=== PATIENT | female | born 2000 | race Two or more races ===

== ENCOUNTER 2021-04-04 12:23 | Outpatient (CLI) | payer OTHER | END 2021-04-04 12:34 | disposition home or self-care (01) | LOC: RAD 12:23 | PROVIDERS: ATTEND Orthopaedic Surgery | DX: M25.472 Effusion, left ankle (principal); S93.412A Sprain of calcaneofibular ligament of left ankle, initial encounter ==

== ENCOUNTER 2021-05-03 12:27 | Outpatient (CLI) | payer OTHER | END 2021-05-03 12:36 | disposition home or self-care (01) | LOC: RAD 12:27 | PROVIDERS: ATTEND Orthopaedic Surgery | DX: S82.392A Other fracture of lower end of left tibia, initial encounter for closed fracture (principal) ==

== ENCOUNTER 2021-05-19 10:52 | Outpatient (CLI) | payer OTHER | END 2021-05-19 11:01 | disposition home or self-care (01) | LOC: RAD 10:52 | PROVIDERS: ATTEND Orthopaedic Surgery | DX: M25.572 Pain in left ankle and joints of left foot (principal); S82.392A Other fracture of lower end of left tibia, initial encounter for closed fracture ==